=== PATIENT | female | born 1955 | race Caucasian/White ===

== ENCOUNTER 2017-12-29 09:36 | Emergency (ER) | payer OTHER ==
[~2017-12-29] VITALS: Ht 157.5 cm; Wt 104.3 kg
[~2017-12-29 09:36] MED LIST: ASPIRIN81 M2 PO; BLOOD PRESSURE MEDS; DILTIAZEM ER120 M1 PO; DIOVAN HCT 1601 EACH PO; DIOVAN160 MG; EFFEXOR XR75 MG PO; EFFEXOR75 MG; GLUCOTROL XL2.5 MG PO; JANUMET 50-5001 EACH PO; LEVOTHYROXIN0.112 M1 PO; LEVOTHYROXINE0.2 M1; LIPITOR 20 MG T20 M1 PO; LOPRESSOR25 PO
[2017-12-29 09:46] VITALS: BP 149/95
[2017-12-29] MEDS ORDERED: OMEPPI 40 MG-11 EACH PO (09:53)
[2017-12-29] MEDS ORDERED: NORCO 5-325 TA1 EACH PO (10:02)
[2017-12-29] MEDS ORDERED: FLEXERIL PO (10:02)
== END 2017-12-29 10:13 | disposition home or self-care (01) ==
LOC: M.ERS 09:36
DX: M43.6 Torticollis (principal); E11.9 Type 2 diabetes mellitus without complications; I10 Essential (primary) hypertension; Z90.710 Acquired absence of both cervix and uterus

== ENCOUNTER → 2018-09-14 | Outpatient (CLI) | payer OTHER ==
[~2018-09-14] MED LIST changes: +FLEXERIL PO; +NORCO 5-325 TA1 EACH PO; +OMEPPI 40 MG-11 EACH PO
--- NOTE | 2018-09-14 16:00 | EXE ---
[place] [address] STRESS ECHOCARDIOGRAM Name: ANDREINA FAIRBANKS Room: [facility]#: [id number] Admission: 09/14/18 Attend Phys: April Tatum DO Discharge: Date of : 55 Date of Service: 09/14/18 [facility] Report #: [id number] THIS REPORT FOR: //name// APPROVED REPORT Study performed: 09/14/2018 13:27:20 Exam: Dobutamine Stress Echo Indication: Dyspnea , Edema Patient Location: Out-Patient Stress Nurse: Gail Duvall RN Supervising Physician: Melvin López MD Ht: 5 ft 2 in HR: 102 bpm BP: 104/81 mmHg Medical History Cardiac Risk Factors: HTN, FHX of CAD, Tobacco History (Former) Procedure The patient underwent a Pharmacological Stress Test using Dobutamine. Blood pressure, heart rate, and EKG were monitored. An Echocardiogram was performed by radio tower technician in four stages in quad fashion. At peak stress, four selected images were obtained and placed side by side with resting images for comparison. Stress Test Details Stress Test: Pharmacological Stress Test using Dobutamine. Reason for pharmacologic stress test: physical limitation. HR Resting HR: 102 bpm Max Heart Rate (APMHR): 157 bpm Max HR Achieved: 141 bpm Target HR (85% APMHR): 133 bpm % of APMHR: 89 Recovery HR: 106 bpm HR response to stress: Normal HR response to stress BP Resting BP: 104/81 mmHg Max BP: 262/91 mmHg Recovery BP: 117/63 mmHg BP response to stress: Abnormal hypertensive [place] [address] STRESS ECHOCARDIOGRAM Name: ANDREINA FAIRBANKS Brittnee Room: [facility]#: [id number] Admission: 09/14/18 Attend Phys: April Tatum DO Discharge: Date of : 55 Date of Service: 09/14/18 1600 Report #: [id number] ECG Resting ECG: Sinus Rhythm Stress ECG: Sinus Rhythm ST Change: Normal Arrhythmia: None Recovery ECG: Sinus Rhythm Recovery ST Change: Normal Clinical Reason for Termination: Completed protocol Stress Symptoms: none Stress ECG Conclusion negative ecg Pre-Stress Echo The resting Echocardiogram showed normal left ventricular contractility with an estimated Ejection Fraction of about >55%. Mild Aortic Insuff Clinical LV chamber size decreases, LV ejection fraction increases, no new wall motion abnormalities are seen. Conclusion Clinical Response: Non-ischemic Exercise Capacity: n/a Stress ECG Response: Non-ischemic Stress Echo Images: Non-ischemic Negative dobutamine stress echo for inducible ischemia /infarct. Other Information Study Quality: Good <Conclusion> Negative dobutamine stress echo for inducible ischemia /infarct. <ELECTRONICALLY SIGNED> By: Melvin López MD, FACC 09/14/181599 1600 99 Melvin López MD, FACC /INF
== END ==
LOC: M.CRD 11:00
DX: M79.89 Other specified soft tissue disorders (principal); I10 Essential (primary) hypertension; R06.02 Shortness of breath; E78.5 Hyperlipidemia, unspecified; E03.9 Hypothyroidism, unspecified; E11.9 Type 2 diabetes mellitus without complications; G47.33 Obstructive sleep apnea (adult) (pediatric); Z88.8 Allergy status to other drugs, medicaments and biological substances; Z87.891 Personal history of nicotine dependence; Z82.49 Family history of ischemic heart disease and other diseases of the circulatory system